=== PATIENT | female | born 1955 | race Caucasian/White ===

== ENCOUNTER 2019-01-02 07:44 | Observation (INO) | payer OTHER ==
[~2019-01-02] VITALS: Ht 157.5 cm; Wt 72.3 kg
[2019-01-02] VITALS (27 sets, daily range): BP systolic 127–162; BP diastolic 60–77; PULSE 48–60; RESP 16–21; Ht 157.5 cm; Wt 72.3 kg
[~2019-01-02 07:44] MED LIST: CEFAZOLIN 2 GM/50 ML (PMX) 50 ML IVPB ONE; HYDR-3601 PO; HYDR-4011 PO
[2019-01-02] MEDS: SOD CHLORIDE 0.9% 1,000 ML IV SCH ×2 (08:57→20:20)
[2019-01-02] MEDS ORDERED: NEOSTIGMINE 3 MG/3 ML SYRINGE ONE ×2 (10:31→10:37)
[2019-01-02] MEDS ORDERED: GLYCOPYRROLATE 0.4 MG INJ ONE ×2 (10:31→10:37)
[2019-01-02] MEDS ORDERED: MEPERIDINE 100 MG INJ ONE (10:31)
[2019-01-02] MEDS ORDERED: LIDOCAINE 2% (SDV) 5 ML INJ ONE (10:31)
[2019-01-02] MEDS ORDERED: SUCCINYLCHOLINE CHLORIDE 100 MG/5 ML SYG IV ONE (10:31)
[2019-01-02] MEDS ORDERED: PROPOFOL 20 ML ONE (10:31)
[2019-01-02] MEDS ORDERED: ROCURONIUM 50 MG INJ ONE (10:31)
[2019-01-02] MEDS ORDERED: METOCLOPRAMIDE 10 MG INJ ONE (10:32)
[2019-01-02] MEDS ORDERED: ONDANSETRON 4 MG INJ ONE (10:32)
[2019-01-02] MEDS ORDERED: CEFAZOLIN 1 GM INJ ONE (11:01)
[2019-01-02] MEDS ORDERED: ATROPINE 1 MG/10 ML SYRINGE ONE (11:40)
[2019-01-02] MEDS ORDERED: DIPHENHYDRAMINE 50 MG INJ IV PRN (12:30)
[2019-01-02] MEDS ORDERED: EPHEDrine 25 MG/5 ML SYG IV PRN ×2 (12:30→13:00)
[2019-01-02] MEDS ORDERED: MEPERIDINE 25 MG INJ IV PRN ×2 (12:30→13:00)
[2019-01-02] MEDS ORDERED: MIDAZOLAM 1 MG/ML 2 ML INJ IV PRN (12:30)
[2019-01-02] MEDS ORDERED: LABETALOL HCL 20MG INJ IV PRN (12:30)
[2019-01-02] MEDS ORDERED: HYDROmorphONE 1 MG/5 ML IV SYRINGE IV PRN ×6 (12:30→13:00)
[2019-01-02] MEDS ORDERED: hydrALAzine 20 MG INJ IV PRN ×2 (12:30→13:00)
[2019-01-02] MEDS ORDERED: FENTAnyl 50 MCG/ML VIAL IV PRN ×6 (12:30→13:00)
[2019-01-02] MEDS ORDERED: ONDANSETRON 4 MG INJ IV PRN ×3 (12:30→13:30)
[2019-01-02] MEDS ORDERED: METOCLOPRAMIDE 10 MG INJ IV PRN ×2 (12:30→13:00)
[2019-01-02] MEDS ORDERED: ALBUTEROL 0.083% (NEB) 2.5 MG/3 ML AMP HHN PRN (13:00)
[2019-01-02] MEDS ORDERED: TRIMETHOBENZAMIDE 100 MG/ML VIAL IM PRN (13:00)
[2019-01-02] MEDS ORDERED: OXYCODONE/ACETAMINOPHEN (5/325) TAB PO PRN (13:00)
[2019-01-02] MEDS ORDERED: ALBUMIN HUMAN 5% 250 ML IV PRN (13:00)
[2019-01-02] MEDS: D5W-0.45 NACL + KCL 20 MEQ 1,000 ML IV SCH ×4 (13:10→22:41)
[2019-01-02] MEDS ORDERED: ACETAMINOPHEN 1000MG/100ML IV 100 ML IVPB PRN (13:30)
[2019-01-02] MEDS: morphine 2 MG INJ IV PRN ×2 (14:12→18:35)
[2019-01-03] MEDS: morphine 2 MG INJ IV PRN (02:05)
[2019-01-03 05:00] VITALS: BP 148/67; PULSE 56; RESP 18
[2019-01-03] MEDS: HYDROCODONE/APAP (5/325) TAB PO PRN ×2 (06:07→15:28)
[2019-01-03] MEDS: D5W-0.45 NACL + KCL 20 MEQ 1,000 ML IV SCH (07:03)
[2019-01-03 08:26] VITALS: BP 148/66; PULSE 96; RESP 18
[2019-01-03] MEDS: SOD CHLORIDE 0.9% 1,000 ML IV SCH (09:40)
== END 2019-01-03 17:50 | disposition home or self-care (01) ==
LOC: SDS 07:44 → REC 13:11 → INTOOBSV 13:11 → MS1 13:55
PROVIDERS: ADMIT Surgery Surgical Oncology; ATTEND Surgery Surgical Oncology
DX: K80.10 Calculus of gallbladder with chronic cholecystitis without obstruction (principal)
CPT/HCPCS: 47562; 88304; J0461; J0690; J1170; J2175; J2270; J2405; J2710; J2765; J3480; J7030; Z7500; Z7512; Z7610; 96360; 96361; 96375; 99217; G0378